=== PATIENT | female | born 1965 | race Caucasian/White ===

== ENCOUNTER → 2023-09-14 16:16 | Outpatient (REF) | payer BC, SELFPAY | LOC: RAD 16:16 | PROVIDERS: ATTENDING PHYSICIAN Orthopaedic Surgery Adult Reconstructive Orthopaedic Surgery | DX: M17.0 Bilateral primary osteoarthritis of knee (principal) | CPT/HCPCS: 73700 ==

== ENCOUNTER → 2024-04-05 15:05 | Outpatient (REF) | payer BC, SELFPAY | LOC: RAD 15:05 | PROVIDERS: ATTENDING PHYSICIAN Internal Medicine Rheumatology; FAMILY PHYSICIAN Family Medicine | DX: M25.552 Pain in left hip (principal) | CPT/HCPCS: 72110; 73523 ==

== ENCOUNTER → 2024-07-21 13:08 | Outpatient (REF) | payer BC, SELFPAY | LOC: HWRAD 13:08 | PROVIDERS: FAMILY PHYSICIAN Internal Medicine Rheumatology; REFERRING PHYSICIAN Orthopaedic Surgery | DX: M25.572 Pain in left ankle and joints of left foot (principal) | CPT/HCPCS: 73700 ==

== ENCOUNTER → 2024-11-03 14:07 | Outpatient (REF) | payer BC, SELFPAY | LOC: RAD 14:07 | PROVIDERS: ATTENDING PHYSICIAN Internal Medicine Rheumatology | DX: Z78.0 Asymptomatic menopausal state (principal) | CPT/HCPCS: 77080 ==

== ENCOUNTER → 2024-11-04 13:31 | Outpatient (REF) | payer BC, SELFPAY | LOC: PAVMRI 13:31 | PROVIDERS: ATTENDING PHYSICIAN Internal Medicine Rheumatology | DX: M47.896 Other spondylosis, lumbar region (principal) | CPT/HCPCS: 72148 ==

== ENCOUNTER → 2025-07-16 11:24 | Outpatient (REF) | payer BC, SELFPAY | LOC: RAD 11:24 | PROVIDERS: ATTENDING PHYSICIAN Surgery | DX: N28.1 Cyst of kidney, acquired (principal) | CPT/HCPCS: 76770 ==